=== PATIENT | male | born 1955 | race African-American/Black ===

== ENCOUNTER 2022-01-19 15:03 | Emergency (ER) | payer MEDICARE, MEDICAID ==
[~2022-01-19] VITALS: Ht 182.9 cm; Wt 90.0 kg
[2022-01-19] MEDS ORDERED: amlodipine (15:07)
[2022-01-19] MEDS ORDERED: metformin (15:07)
[2022-01-19 15:45] VITALS: BP 180/90
[2022-01-19] MEDS ORDERED: KETOROLAC 60MG/2ML VIAL IM ONE (15:45)
[2022-01-19] MEDS ORDERED: IBUP-2028 MT (16:45)
== END 2022-01-19 17:10 | disposition home or self-care (01) ==
LOC: ER 15:03
DX: M25.512 Pain in left shoulder (principal); R07.81 Pleurodynia; V99.XXXA Unspecified transport accident, initial encounter; Y93.89 Activity, other specified; Y92.89 Other specified places as the place of occurrence of the external cause; Y99.8 Other external cause status; E11.9 Type 2 diabetes mellitus without complications; I10 Essential (primary) hypertension
CPT/HCPCS: 71046; 71100; 73030; 99283; 99284; J1885